=== PATIENT | female | born 1940 | race Caucasian/White ===

== ENCOUNTER 2024-04-10 06:44 | Emergency (ER) | payer OTHER, SELFPAY ==
[2024-04-10 06:48] VITALS: BP 198/72
[2024-04-10 06:50] VITALS: BP 198/72; BMI 24.6
[2024-04-10 06:54] VITALS: BP 186/59
[2024-04-10 07:00] VITALS: BP 178/55
[2024-04-10 07:07] LABS: % Basophils 0.7 % (0-2); % Eosinophils 4.1 % (0-6); % Immature Granulocytes 0.7 % (0-0.5); % Lymphocytes 23.9 % (20.5-51.1); % Monocytes 10.7 % (1.7-9.3); % Neutrophils 59.9 % (42.2-75.2); Absolute Basophils 0.1 10^3/uL (0-0.2); Absolute Eosinophils 0.3 10^3/uL (0-0.7); Absolute Immature Granulocytes 0.1 10^3/uL (0-0.05); Absolute Lymphocytes 1.8 10^3/uL (1.2-3.4); Absolute Monocytes 0.8 10^3/uL (0.1-0.6); Absolute Neutrophils 4.4 10^3/uL (1.4-6.5); Hematocrit 35.2 % (37.0-47.0); Hemoglobin 12.2 g/dL (12.0-16.0); Mean Corp Hgb Conc. 34.7 g/dL (33.0-37.0); Mean Corpuscular Hgb 30.3 pg (27.0-31.0); Mean Corpuscular Volume 87.3 fL (81.0-99.0); Mean Platelet Volume 8.5 fL (7.4-10.4); Nucleated Red Blood Cells % 0 %; Platelet Count 309 10^3/uL (130-400); Red Blood Cell Count 4.03 10^6/uL (4.20-5.40); Red Cell Dist. Width 13.4 % (11.5-14.5); White Blood Cell Count 7.4 10^3/uL (4.8-10.8)
[2024-04-10 07:11] LABS: ALT (SGPT) 21 U/L (0-35); AST (SGOT) 30 U/L (14-36); Albumin 4.2 g/dl (3.5-5.0); Alkaline Phosphatase 49 U/L (38-126); Blood Urea Nitrogen 13 mg/dl (7-17); Calcium 9.7 mg/dl (8.4-10.2); Carbon Dioxide 29 mmol/L (22-30); Chloride 99 mmol/L (98-107); Estimated Creatinine Clearance 37 ml/min; Glucose 127 mg/dl (70-99); Potassium 4.1 mmol/L (3.5-5.1); Sodium 137 mmol/L (135-145); Total Bilirubin 0.4 mg/dl (0.2-1.3); Total Protein 7.5 g/dl (6.3-8.2); eGFR > 60.00
--- NOTE | 2024-04-10 07:27 | ED.GENMED ---
History of Present Illness
General
Chief Complaint: Weakness
Source: patient
Exam Limitations: none
Time Seen by Provider: 04/10/24 07:19
History of Present Illness
History of Present Illness:
83-year-old female got up in the middle the night to use the bathroom. Upon returning to bed she felt sudden onset of bilateral leg weakness. Able to walk but legs felt weak. Some also tingling or cold sensation in both arms. Denies chest pain
shortness of breath headache visual issues speech issues or other complaints. This has been going on now for 2 to 3 hours
Past History
Past History
ED Past Medical History: CAD, HTN, Hypercholesterolemia, NIDDM, [place], Hypothyroidism, Other (Hemorrhoids) and Other (Central retinal vein occlusion of left eye with partial vision loss, macular edema both eyes, degenerative myopia of both eyes,
hypertensive retinopathy of both eyes, vitreous detachmen)
ED Past Surgical History: Cardiac (PTCA with stent to the right coronary artery February 2016), Cholecystectomy, Gynecological (hysterectomy salpingooophorectomy 11/2019), Orthopedic (Bilateral knee replacements) and Urological (abdominal culposuspension
)
Social History
Tobacco: Non-smoker
Alcohol: None
Drug: None
Personal:
Living: alone
Employment: Not employed
Family History
Family History: Other (Noncontributory)
Review of Systems
Review of Systems
All Other Systems: Not applicable
Constitutional: Denies fever
Respiratory: Reports no symptoms
Cardiac: Reports no symptoms
Phy Exam
Physical Exam
Physical Exam:
GENERAL: Alert and oriented in no apparent distress
EYE: Orbits normal.
NECK: Supple, no thyroid palpable
ENT: Pharynx without erythema
CARDIAC: Regular rate and rhythm without any obvious murmurs. Pacemaker left upper chest wall. Good distal pulses of the lower extremities and upper extremities. Extremities are warm. Good capillary refill.
LUNGS: Clear breath sounds,normal
ABDOMEN: Soft, without focal tenderness or distention
NEUROLOGICAL: Alert and oriented , speech normal. Cranial nerves II through XII intact. [id number] normal. No drift. Good upper extremity offset press operator. Dorsi and plantarflexion of the feet within normal limits. Some general weakness with straight
leg raising bilaterally but symmetrical and able to straight leg raise.
SKIN: Warm and dry, no rash or lesion, no discoloration, skin intact.
MUSCULOSKELETAL: No edema,no deformity.Good color
PSYCH: Normal and appropriate interaction.
Course
Orders/Labs/Results
Orders:
Orders
04/10/24 06:49
Cardiac Monitoring- Treatment ONCE
04/10/24 06:51
CMP [Comprehensive Metabolic Panel] Urgent
Complete Blood Count/With Diff Urgent
04/10/24 07:25
CT Head W/o Iv Contrast Urgent
Comment:
Reason For Exam: Sudden bilateral weakness
04/10/24 09:19
EKG [Electrocardiogram (*1)] Urgent
Reason for Study: Fatigue / Weakness
EKG- Treatment ONCE
Abnormal Lab Results
04/10/24
06:51
RBC 4.03 L 10^6/uL
(4.20-5.40)
Hct 35.2 L %
(37.0-47.0)
Abs Immat Gran (auto) 0.1 H 10^3/uL
(0-0.05)
Absolute Monos (auto) 0.8 H 10^3/uL
(0.1-0.6)
Immature Gran % 0.7 H %
(0-0.5)
Monocytes % 10.7 H %
(1.7-9.3)
Glucose 127 H mg/dl
(70-99)
04/10/24 06:51
04/10/24 06:51
Vital Signs
Initial and Last Documented VS:
Initial Vital Signs
BP
198/72
04/10/24 06:48
Last Documented Vital Signs
Temp Pulse Resp BP Pulse Ox
98.1 F 64 16 189/61 97
04/10/24 06:50 04/10/24 09:30 04/10/24 09:30 04/10/24 08:00 04/10/24 09:30
*Radiology
Radiology exam reviewed: radiology read reviewed (neg ct)
*Pulse Oximetry
Patient hypoxic: no
*EKG
Interpreted by ED Provider?: Yes
Interpretation: abnormal
Comparison EKG: no changes
Heart Rate: 61
Rate: normal
Rhythm: other (Atrial paced rhythm)
Vista: left axis deviation
Interval: normal interval
QRS Pattern: normal QRS
Ischemia: no ischemia
*First Assist Interpretation
Rate: normal
Interpretation: normal
Heart Rate: 62
Rhythm: other (Atrial paced)
*Critical Care Note
Total Time (30-74mins, 75-104mins- exclusive of procedures): Not Applicable
Update Note
Update Note:
Patient ambulated well and feels well. Nothing acute on the pacer evaluation. Medically stable. No serious etiology found for transient bilateral lower extremity weakness. Nothing to suspect vascular issue discharged to follow-up
ED Attending Note
-
Portions of this chart may have been created with voice recognition software.� Occasional wrong word or��sound alike� substitutions may have occurred due to the inherent limitations of voice recognition software.
Discharge Plan
Departure
Patient Disposition: Home (Routine Discharge)
Date of Disposition: 04/10/24
Time of Disposition: 10:33
Patient with high blood pressure during this ER visit?: Yes
Discharge Problem:
Transient bilateral lower extremity weak
Instructions: Generalized Weakness (DC), BLOOD PRESSURE
Prescriptions:
No Action
acetaminophen [Tylenol Extra Strength] 500 MG tablet
500 mg PO Q6HPRN PRN (Reason: mild pain)
calcium carbonate [Antacid (calcium carbonate)] 1 TABLET tablet,chewable
1 tab PO Q6HPRN PRN (Reason: gi upset)
pravastatin 10 mg Tablet
10 mg PO MOWEFR
amlodipine 10 mg tablet
10 mg PO DAILY
Visbiome 112.5 billion cell Capsule
1 cap PO DAILY
metoprolol succinate 25 mg tablet extended release 24 hr
25 mg PO BID
polyethylene glycol 3350 [Miralax] 17 gram Powder In Packet
17 g PO DAILYPRN PRN (Reason: constipation)
levothyroxine 75 mcg Tablet
75 mcg PO DAILY AT 0700 30 Days Qty: 30 0RF
metformin 500 MG tablet
500 mg PO BID Qty: 0 0RF
Rx Instructions:
resume friday
Eliquis 2.5 mg Tablet
2.5 mg PO BID Qty: 60 0RF
Rx Instructions:
resume eliquis today evening
Referrals:
Stephanie Conte MD [Family Provider] - Follow up in 2-3 days
Activity Restrictions/Additional Instructions:
Follow-up closely with your primary physician. Return with any recurrent episodes of weakness or any other concerning symptoms
Interventions
Interventions:
*Risk Screen - Suicide Last Done: 04/10/24 06:50
*General Assessment Last Done: 04/10/24 06:50
*Neglect/Abuse Screening Last Done: 04/10/24 06:50
ED- Fall Risk Assessment Last Done: 04/10/24 06:53
*ED COVID-19 Vaccine History Last Done: 04/10/24 06:50
ED- Cardiac Assessment Last Done: 04/10/24 07:10
ED- Neurological Assessment Last Done: 04/10/24 07:10
ED- Pulmonary Assessment Last Done: 04/10/24 07:10
Discharge Date and Time
Print Language: KYRGYZ
[2024-04-10 08:00] VITALS: BP 189/61
== END 2024-04-10 10:57 | disposition home or self-care (01) ==
LOC: EMR 06:44
PROVIDERS: EMERGENCY PHYSICIAN Emergency Medicine; FAMILY PHYSICIAN Family Medicine
DX: M62.81 Muscle weakness (generalized) (principal); R20.2 Paresthesia of skin; I10 Essential (primary) hypertension; I25.10 Atherosclerotic heart disease of native coronary artery without angina pectoris; E78.00 Pure hypercholesterolemia, unspecified; E11.311 Type 2 diabetes mellitus with unspecified diabetic retinopathy with macular edema; E03.9 Hypothyroidism, unspecified; I25.2 Old myocardial infarction; Z95.5 Presence of coronary angioplasty implant and graft; Z96.653 Presence of artificial knee joint, bilateral; Z87.19 Personal history of other diseases of the digestive system; Z90.49 Acquired absence of other specified parts of digestive tract; Z79.01 Long term (current) use of anticoagulants; Z79.84 Long term (current) use of oral hypoglycemic drugs; Z88.1 Allergy status to other antibiotic agents; Z88.5 Allergy status to narcotic agent; Z88.2 Allergy status to sulfonamides; Z88.8 Allergy status to other drugs, medicaments and biological substances
CPT/HCPCS: 99284; 70450; 80053; 85025; 93005

== ENCOUNTER 2024-07-13 07:44 | Emergency (ER) | payer OTHER, SELFPAY ==
[2024-07-13] VITALS (9 sets, daily range): BP systolic 103–180; BP diastolic 61–111; BMI 24.2
--- NOTE | 2024-07-13 08:01 | ED.GENMED ---
History of Present Illness
General
Chief Complaint: Chest Pain
Source: patient
Exam Limitations: none
Time Seen by Provider: 07/13/24 07:46
History of Present Illness
History of Present Illness:
83-year-old female with history coronary artery disease, atrial fibrillation, [id number]-yeqrsrega diabetes has a pacemaker presents with the onset of chest pain. This woke her up at 530 this morning. She described with pressure to the left side
of her chest that did not radiate without associated nausea or diaphoresis or vomiting. The pain was not pleuritic. She went downstairs and took a nitroglycerin and the pain seems to have resolved. The pain lasted around 20 to 30 minutes. En
route she was given the equivalent of 4 aspirin. Currently on my exam she denies any pain. She is on Eliquis. Last dose of this was last evening. No abdominal pain. No other complaints at this time
Past History
Past History
ED Past Medical History: CAD, HTN, Hypercholesterolemia, NIDDM, [place], Hypothyroidism, Other (Hemorrhoids) and Other (Central retinal vein occlusion of left eye with partial vision loss, macular edema both eyes, degenerative myopia of both eyes,
hypertensive retinopathy of both eyes, vitreous detachmen)
ED Past Surgical History: Cardiac (PTCA with stent to the right coronary artery February 2016), Cholecystectomy, Gynecological (hysterectomy salpingooophorectomy 11/2019), Orthopedic (Bilateral knee replacements) and Urological (abdominal culposuspension
)
Social History
Tobacco: Non-smoker
Alcohol: None
Drug: None
Personal:
Living: alone
Employment: Not employed
Family History
Family History: Other (Noncontributory)
Phy Exam
Physical Exam
Physical Exam:
General: Well-appearing female no acute respiratory distress
HEENT: Normocephalic atraumatic
Heart: Regular rate and rhythm no murmurs
Lungs: Clear no wheeze or rales
Abdomen soft nontender nondistended
Extremities: No cyanosis or edema
Scores
Heart Score for Chest Pain Patients
STEMI patient?: No
History: Slightly or Non-Suspicious
ECG: Normal
Age: >/= 65 years
Risk Factors: >/= 3 Risk Factors or History of CAD
Troponin: </= Normal Limit
Heart Score for Chest Pain Patients: 4
Heart Score Risk: 20.3% MACE over next 6 weeks
Course
Orders/Labs/Results
Orders:
Orders
07/13/24 07:51
Electrocardiogram (*1) Urgent
Reason for Study: Chest Pain
EKG- Treatment ONCE
07/13/24 07:59
CR Chest Portable - 1 View Urgent
Comment:
Reason For Exam: chest pain
Reason Study Needs to be Portable: Unable to Transport
07/13/24 08:04
Complete Blood Count/With Diff Urgent
Comprehensive Metabolic Panel Urgent
Troponin I Urgent
07/13/24 10:00
Electrocardiogram (*1) Urgent
Reason for Study: Chest Pain
EKG- Treatment ONCE
07/13/24 11:56
Troponin I Urgent
Abnormal Lab Results
07/13/24
08:04
RBC 4.04 L 10^6/uL
(4.20-5.40)
Absolute Monos (auto) 0.8 H 10^3/uL
(0.1-0.6)
Monocytes % 12.9 H %
(1.7-9.3)
Glucose 136 H mg/dl
(70-99)
Alkaline Phosphatase 36 L U/L
(38-126)
07/13/24 08:04
07/13/24 08:04
Vital Signs
Initial and Last Documented VS:
Initial Vital Signs
Temp Pulse Resp BP Pulse Ox
98.0 F 67 20 180/70 100
07/13/24 07:48 07/13/24 07:48 07/13/24 07:48 07/13/24 07:48 07/13/24 07:48
Last Documented Vital Signs
Temp Pulse Resp BP Pulse Ox
98.0 F 75 13 103/88 98
07/13/24 07:48 07/13/24 11:53 07/13/24 11:53 07/13/24 11:53 07/13/24 11:53
MDM/Problems Addressed
Differential Diagnosis Includes:
Chest pain. Differential could include ACS. Unlikely to be PE secondary to anticoagulated state. Symptoms are resolved. Vital signs are stable there was no radiation of the pain. Dissection unlikely.
EKG through triage shows atrial paced rhythm with a rate of 61 no ischemic changes. When compared to prior there is no change noted. Chest x-ray pending will check labs including troponin. Consider repeat troponin if initial and is negative.
Pacemaker interrogated
*Critical Care Note
Total Time (30-74mins, 75-104mins- exclusive of procedures): Not Applicable
Update Note
Update Note:
Initial troponin undetectable. Repeat troponin undetectable. Patient remained stable and nontoxic. Upon reassessment multiple times he has no current pain. Repeat EKG is nonischemic. X-ray is clear. Given history of coronary artery disease age
and other risk factors, did contact cardiology regarding her chest discomfort. They feel comfortable with outpatient follow-up given nonischemic EKG and negative troponins. Patient comfortable with this as well. Chest pain hotline used. Return
precautions were given. Stable for discharge.
ED Attending Note
-
Portions of this chart may have been created with voice recognition software.� Occasional wrong word or��sound alike� substitutions may have occurred due to the inherent limitations of voice recognition software.
Discharge Plan
Departure
Patient Disposition: Home (Routine Discharge)
Date of Disposition: 07/13/24
Time of Disposition: 13:31
Patient with high blood pressure during this ER visit?: No
Discharge Problem:
Chest pain
Instructions: Chest Pain DCA Follow Up
Prescriptions:
No Action
acetaminophen [Tylenol Extra Strength] 500 MG tablet
500 mg PO Q6HPRN PRN (Reason: mild pain)
calcium carbonate [Antacid (calcium carbonate)] 1 TABLET tablet,chewable
1 tab PO Q6HPRN PRN (Reason: gi upset)
pravastatin 10 mg Tablet
10 mg PO MOWEFR
amlodipine 10 mg tablet
10 mg PO DAILY
Visbiome 112.5 billion cell Capsule
1 cap PO DAILY
metoprolol succinate 25 mg tablet extended release 24 hr
25 mg PO BID
polyethylene glycol 3350 [Miralax] 17 gram Powder In Packet
17 g PO DAILYPRN PRN (Reason: constipation)
levothyroxine 75 mcg Tablet
75 mcg PO DAILY AT 0700 30 Days Qty: 30 0RF
metformin 500 MG tablet
500 mg PO BID Qty: 0 0RF
Rx Instructions:
resume friday
Eliquis 2.5 mg Tablet
2.5 mg PO BID Qty: 60 0RF
Rx Instructions:
resume eliquis today evening
Referrals:
Stephanie Conte MD [Family Provider] -
Activity Restrictions/Additional Instructions:
Please continue current medications. Return here for worsening symptoms otherwise follow-up with cardiology.
Interventions
Interventions:
*Risk Screen - Suicide Last Done: 07/13/24 08:00
*General Assessment Last Done: 07/13/24 07:59
*Neglect/Abuse Screening Last Done: 07/13/24 07:48
*ED COVID-19 Vaccine History Last Done: 07/13/24 07:59
ED- Cardiac Assessment Last Done: 07/13/24 08:00
Discharge Date and Time
Print Language: AMERICAN
[2024-07-13 08:11] LABS: % Basophils 0.7 % (0-2); % Eosinophils 2.4 % (0-6); % Immature Granulocytes 0.5 % (0-0.5); % Lymphocytes 22.9 % (20.5-51.1); % Monocytes 12.9 % (1.7-9.3); % Neutrophils 60.6 % (42.2-75.2); Absolute Eosinophils 0.1 10^3/uL (0-0.7); Absolute Lymphocytes 1.4 10^3/uL (1.2-3.4); Absolute Monocytes 0.8 10^3/uL (0.1-0.6); Absolute Neutrophils 3.6 10^3/uL (1.4-6.5); Hematocrit 37.5 % (37.0-47.0); Hemoglobin 12.4 g/dL (12.0-16.0); Mean Corp Hgb Conc. 33.1 g/dL (33.0-37.0); Mean Corpuscular Hgb 30.7 pg (27.0-31.0); Mean Corpuscular Volume 92.8 fL (81.0-99.0); Mean Platelet Volume 8.5 fL (7.4-10.4); Nucleated Red Blood Cells % 0 %; Platelet Count 290 10^3/uL (130-400); Red Blood Cell Count 4.04 10^6/uL (4.20-5.40); Red Cell Dist. Width 13.3 % (11.5-14.5)
[2024-07-13 08:28] LABS: ALT (SGPT) 20 U/L (0-35); AST (SGOT) 28 U/L (14-36); Alkaline Phosphatase 36 U/L (38-126); Blood Urea Nitrogen 17 mg/dl (7-17); Calcium 9.3 mg/dl (8.4-10.2); Carbon Dioxide 28 mmol/L (22-30); Chloride 98 mmol/L (98-107); Estimated Creatinine Clearance 38 ml/min; Glucose 136 mg/dl (70-99); Potassium 4.6 mmol/L (3.5-5.1); Sodium 136 mmol/L (135-145); Total Bilirubin 0.5 mg/dl (0.2-1.3); Total Protein 7.3 g/dl (6.3-8.2); eGFR > 60.00
[2024-07-13 08:38] LABS: Troponin I < 0.012 ng/ml
[2024-07-13 12:57] LABS: Troponin I < 0.012 ng/ml
--- NOTE | 2024-07-13 13:59 | EDRN ---
Reviewed discharge instructions with patient. Verbalized understanding. Taken to lobby in wheelchair to wait for her sister to pick her up.
== END 2024-07-13 13:55 | disposition home or self-care (01) ==
LOC: EMR 07:44
PROVIDERS: Physician Assistant; EMERGENCY PHYSICIAN Emergency Medicine; FAMILY PHYSICIAN Family Medicine
DX: R07.9 Chest pain, unspecified (principal); I25.10 Atherosclerotic heart disease of native coronary artery without angina pectoris; I10 Essential (primary) hypertension; E78.00 Pure hypercholesterolemia, unspecified; E03.9 Hypothyroidism, unspecified; E11.9 Type 2 diabetes mellitus without complications; I48.91 Unspecified atrial fibrillation; Z95.0 Presence of cardiac pacemaker; Z79.01 Long term (current) use of anticoagulants; Z01.810 Encounter for preprocedural cardiovascular examination; Z90.49 Acquired absence of other specified parts of digestive tract; Z90.710 Acquired absence of both cervix and uterus; Z95.5 Presence of coronary angioplasty implant and graft
CPT/HCPCS: 99285; 71045; 80053; 84484; 85025; 93005

== ENCOUNTER → 2024-09-02 10:47 | Outpatient (REF) | payer OTHER, SELFPAY | LOC: RCS 10:47 | PROVIDERS: ATTENDING PHYSICIAN Physician Assistant; FAMILY PHYSICIAN Family Medicine | DX: I25.10 Atherosclerotic heart disease of native coronary artery without angina pectoris (principal); I34.0 Nonrheumatic mitral (valve) insufficiency; R06.09 Other forms of dyspnea | CPT/HCPCS: 93306 ==

== ENCOUNTER 2024-11-10 08:53 | Emergency (ER) | payer OTHER, SELFPAY ==
[2024-11-10] VITALS (12 sets, daily range): BP systolic 158–196; BP diastolic 66–98; PULSE 61–84; BMI 23.8
--- NOTE | 2024-11-10 09:02 | ED.GENMED ---
History of Present Illness
<RAVIN Alcala - Last Filed: 11/10/24 16:50>
General
Chief Complaint: Dizziness
Source: patient
Exam Limitations: none
Time Seen by Provider: 11/10/24 08:57
Nursing documentation reviewed up to this point in time: agreed with
History of Present Illness
History of Present Illness:
Patient is an 84-year-old female who presents via EMS for dizziness. Patient reports she woke up opened her eyes and felt very' lightheaded.' She said 'my head felt funny,' but ' room was not spinning. She tried to walk with her cane but felt
lightheaded. She did take a chair rider downstairs and had some mild pressure in her chest when she got down to the next floor.
She felt more lightheaded like she was afraid to pass out. She does have a history of A-fib CAD hypertension hyperlipidemia and RCA stent. She normally takes Eliquis in the morning but did not take it yet today.
Past History
<RAVIN Alcala - Last Filed: 11/10/24 16:50>
Past History
ED Past Medical History: CAD, HTN, Hypercholesterolemia, NIDDM, [place], Hypothyroidism, Other (Hemorrhoids) and Other (Central retinal vein occlusion of left eye with partial vision loss, macular edema both eyes, degenerative myopia of both eyes,
hypertensive retinopathy of both eyes, vitreous detachmen)
ED Past Surgical History: Cardiac (PTCA with stent to the right coronary artery February 2016), Cholecystectomy, Gynecological (hysterectomy salpingooophorectomy 11/2019), Orthopedic (Bilateral knee replacements) and Urological (abdominal culposuspension
)
Social History
Tobacco: Non-smoker
Alcohol: None
Drug: None
Personal:
Living: alone
Employment: Not employed
Family History
Family History: Other (Noncontributory)
Review of Systems
<RAVIN Alcala - Last Filed: 11/10/24 16:50>
Review of Systems
Allergies reviewed?: Yes
All Other Systems: ROS reviewed and negative except as documented in HPI and ROS
Constitutional: Reports no symptoms; Denies fever, fatigue or chills
Respiratory: Reports no symptoms
Cardiac: Reports no symptoms
ABD/GI: Reports no symptoms
: Reports no symptoms
Musculoskeletal: Reports no symptoms
Skin: Reports no symptoms
Neurological: Reports dizzy
Phy Exam
<RAVIN Alcala - Last Filed: 11/10/24 16:50>
General Physical Exam
General Presentation: no apparent distress
General age: appears stated age
General Skin: warm and dry
General Habitus: elderly
General Mental: alert
General Hydration: appears well hydrated
ENT Exam
ENT Exam: EOMI
Eye Exam
Eye Exam: PERRL, EOMI and other (no nystagmus )
Eye Exam General: PERRL: bilateral and EOM intact: bilateral
Pupil Exam: Bilateral: round and reactive
Cardiovascular Exam
Cardiovascular Exam: regular rate/rhythm, no murmur and normal peripheral pulses
Pulmonary Exam
Pulmonary Exam: lungs clear and no respiratory distress
Neurological Exam
Neurological Exam: alert
Musculoskeletal Exam
Musculoskeletal Exam: full ROM
Skin Exam
Skin Exam: normal color and warm/dry
Psychiatric Exam
Psychiatric Exam: normal mood/affect
Course
<RAVIN Alcala - Last Filed: 11/10/24 16:50>
Orders/Labs/Results
Orders:
Orders
11/10/24 08:55
Electrocardiogram (*1) Urgent
Reason for Study: Vertigo / Dizzy
Cardiac Monitoring- Treatment ONCE
EKG- Treatment ONCE
11/10/24 09:02
Complete Blood Count/With Diff Urgent
11/10/24 09:07
CT Head W/o Iv Contrast Urgent
Comment:
Reason For Exam: dizziness
11/10/24 09:28
Comprehensive Metabolic Panel Urgent
Troponin I Urgent
11/10/24 09:42
Chest [CR Chest - 2 Views ] Urgent
Comment:
Reason For Exam: cp
11/10/24 09:59
PT Consult [Pt Eval And Treat] Urgent
Treatment: dizziness, feels better
Activity Level: Out of Bed-Early Mobility
11/10/24 10:37
Orthostatic VS- Treatment ONCE
11/10/24 10:52
NEUROLOGY CONSULT Urgent
Consulting Provider: Crow Sanford
Was physician already notified: Yes
Abnormal Lab Results
11/10/24 11/10/24
09:02 09:28
RBC 4.09 L 10^6/uL
(4.20-5.40)
Hct 35.9 L %
(37.0-47.0)
Absolute Monos (auto) 0.8 H 10^3/uL
(0.1-0.6)
Monocytes % 11.0 H %
(1.7-9.3)
Sodium 133 L mmol/L
(135-145)
Glucose 126 H mg/dl
(70-99)
11/10/24 09:02
11/10/24 09:28
Vital Signs
Initial and Last Documented VS:
Initial Vital Signs
Temp Pulse Resp BP Pulse Ox
97.9 F 60 14 179/89 100
11/10/24 08:56 11/10/24 08:56 11/10/24 08:56 11/10/24 08:56 11/10/24 08:56
Last Documented Vital Signs
Temp Pulse Resp BP Pulse Ox
97.9 F 89 18 158/66 98
11/10/24 08:56 11/10/24 13:00 11/10/24 13:00 11/10/24 12:00 11/10/24 13:00
Anime Designer consulted with Physician
Anime Designer consulted with physician?: Yes
Name of Physician Consulted: Susie
<Desiree Richards MD - Last Filed: 11/10/24 10:07>
Orders/Labs/Results
Orders:
Orders
11/10/24 08:55
Electrocardiogram (*1) Urgent
Reason for Study: Vertigo / Dizzy
Cardiac Monitoring- Treatment ONCE
EKG- Treatment ONCE
11/10/24 09:02
Complete Blood Count/With Diff Urgent
11/10/24 09:07
CT Head W/o Iv Contrast Urgent
Comment:
Reason For Exam: dizziness
11/10/24 09:28
Comprehensive Metabolic Panel Urgent
Troponin I Urgent
11/10/24 09:42
Chest [CR Chest - 2 Views ] Urgent
Comment:
Reason For Exam: cp
11/10/24 09:59
PT Consult [Pt Eval And Treat] Urgent
Treatment: dizziness, feels better
Activity Level: Out of Bed-Early Mobility
11/10/24 10:37
Orthostatic VS- Treatment ONCE
11/10/24 10:52
NEUROLOGY CONSULT Urgent
Consulting Provider: Crow Sanford
Was physician already notified: Yes
Abnormal Lab Results
11/10/24 11/10/24
09:02 09:28
RBC 4.09 L 10^6/uL
(4.20-5.40)
Hct 35.9 L %
(37.0-47.0)
Absolute Monos (auto) 0.8 H 10^3/uL
(0.1-0.6)
Monocytes % 11.0 H %
(1.7-9.3)
Sodium 133 L mmol/L
(135-145)
Glucose 126 H mg/dl
(70-99)
11/10/24 09:02
11/10/24 09:28
Vital Signs
Initial and Last Documented VS:
Initial Vital Signs
Temp Pulse Resp BP Pulse Ox
97.9 F 60 14 179/89 100
11/10/24 08:56 11/10/24 08:56 11/10/24 08:56 11/10/24 08:56 11/10/24 08:56
Last Documented Vital Signs
Temp Pulse Resp BP Pulse Ox
97.9 F 89 18 158/66 98
11/10/24 08:56 11/10/24 13:00 11/10/24 13:00 11/10/24 12:00 11/10/24 13:00
<RAVIN Alcala - Last Filed: 11/10/24 16:50>
MDM/Problems Addressed
Differential Diagnosis Includes:
Not limited to lightheadedness, anemia, dehydration, vertigo, dizziness less likely stroke
MDM/Problems Addressed:
Patient is an 84-year-old female who presented with dizziness upon opening her eyes this morning. She describes this as feeling very dizzy and felt' like my head felt funny.' She denies actual room spinning sensation however with pt's description
of type of dizziness it is possible that this is vertigo.
Patient presented awake alert no acute distress and on reevaluation now at 10 AM patient is asymptomatic dizziness has resolved. Case reviewed with ED physician will check CAT scan as well as PT consult labs. She did complain of mild chest
pressure after taking a chair ride her down the steps. Will check troponin and interrogate patient's pacemaker.
Pt was evaluated by PT and well as neuro.
Patient has remained asymptomatic here in the ER and is well-appearing .ambulatory with a steady gait. No neurological deficits symptoms are not consistent with vertigo as discussed with PT who evaluated patient. Patient's blood pressure was very
elevated when she came to the ER and neurology did see patient feels that this may likely be a component. Blood pressure has decreased on its own.
Patient is well-appearing and asymptomatic currently.
CT head is negative chest x-ray is negative and labs are unremarkable.
Pacemaker interrogated shows no episodes of V. tach V-fib or fast rates.
Patient has been ambulatory here in the ER stable for discharge home.
Pt was eval by ED physician
<RAVIN Alcala - Last Filed: 11/10/24 16:50>
*Radiology
Radiology exam reviewed: radiology read reviewed
*Pulse Oximetry
Patient hypoxic: no
*EKG
Interpreted by ED Provider?: Yes
Heart Rate: 80
Rate: normal
Rhythm: other (paced )
*Critical Care Note
Total Time (30-74mins, 75-104mins- exclusive of procedures): Not Applicable
Data Reviewed
Review of Other/Old Records Reveals: Other (Echo 09/18 reviewed shows normal left regular size left regular ejection fraction 66% mild aortic regurg mild tricuspid regurg no significant change from 2022 echo )
<RAVIN Alcala - Last Filed: 11/10/24 16:50>
Patient Management
Discussion with other providers: Hall Director (neuro DR Sanford )
ED Attending Note
<RAVIN Alcala - Last Filed: 11/10/24 16:50>
-
Portions of this chart may have been created with voice recognition software.� Occasional wrong word or��sound alike� substitutions may have occurred due to the inherent limitations of voice recognition software.
<Desiree Richards MD - Last Filed: 11/10/24 10:07>
ED Attending Note
Patient seen and examined by attending physician: Yes
I performed the substantive portion of visit, reviewed & personally made and approve the management plan that is documented in note by myself or SHENA.: Yes
ED Attending Note:
The patient has a normal neurological exam. Visual chang are intact. Extraocular muscles are intact. 5 out of 5 strength in all extremities. Speech sounds normal.
Heart sounds regular lungs are clear. Patient reports that symptoms are completely gone at this time. Therefore, is it is doubtful it is a stroke. She has no visual changes.
Discharge Plan
Departure
Patient Disposition: Home (Routine Discharge)
Date of Disposition: 11/10/24
Time of Disposition: 12:54
Patient with high blood pressure during this ER visit?: Yes
Condition: Fair
Covid-19: Not Applicable
Discharge Problem:
Dizziness
Instructions: Dizziness, BLOOD PRESSURE
Prescriptions:
No Action
acetaminophen [Tylenol Extra Strength] 500 MG tablet
500 mg PO Q6HPRN PRN (Reason: mild pain)
calcium carbonate [Antacid (calcium carbonate)] 1 TABLET tablet,chewable
1 tab PO Q6HPRN PRN (Reason: gi upset)
pravastatin 10 mg Tablet
10 mg PO MOWEFR
amlodipine 10 mg tablet
10 mg PO DAILY
Visbiome 112.5 billion cell Capsule
1 cap PO DAILY
metoprolol succinate 25 mg tablet extended release 24 hr
25 mg PO BID
polyethylene glycol 3350 [Miralax] 17 gram Powder In Packet
17 g PO DAILYPRN PRN (Reason: constipation)
levothyroxine 75 mcg Tablet
75 mcg PO DAILY AT 0700 30 Days Qty: 30 0RF
metformin 500 MG tablet
500 mg PO BID Qty: 0 0RF
Rx Instructions:
resume friday
Eliquis 2.5 mg Tablet
2.5 mg PO BID Qty: 60 0RF
Rx Instructions:
resume eliquis today evening
Referrals:
Stephanie Conte MD [Family Provider] -
Activity Restrictions/Additional Instructions:
As discussed please take all of your medication when you go home. Follow-up with your family doctor in the next several days and return if any worsening of symptoms.
Interventions
Interventions:
*Risk Screen - Suicide Last Done: 11/10/24 08:56
*General Assessment Last Done: 11/10/24 08:56
*Neglect/Abuse Screening Last Done: 11/10/24 08:56
*ED- Fall Risk Assessment Last Done: 11/10/24 08:56
*ED COVID-19 Vaccine History Last Done: 11/10/24 08:56
*Nursing Disposition Last Done: 11/10/24 13:34
ED- Neurological Assessment Last Done: 11/10/24 09:45
ED- Cardiac Assessment Last Done: 11/10/24 09:45
Discharge Date and Time
Discharge Date/Time: 11/10/24 13:41
Print Language: CZECH
[2024-11-10 09:23] LABS: % Basophils 0.8 % (0-2); % Eosinophils 1.6 % (0-6); % Immature Granulocytes 0.5 % (0-0.5); % Lymphocytes 21.4 % (20.5-51.1); % Neutrophils 64.7 % (42.2-75.2); Absolute Basophils 0.1 10^3/uL (0-0.2); Absolute Eosinophils 0.1 10^3/uL (0-0.7); Absolute Lymphocytes 1.6 10^3/uL (1.2-3.4); Absolute Monocytes 0.8 10^3/uL (0.1-0.6); Absolute Neutrophils 4.8 10^3/uL (1.4-6.5); Hematocrit 35.9 % (37.0-47.0); Hemoglobin 12.3 g/dL (12.0-16.0); Mean Corp Hgb Conc. 34.3 g/dL (33.0-37.0); Mean Corpuscular Hgb 30.1 pg (27.0-31.0); Mean Corpuscular Volume 87.8 fL (81.0-99.0); Mean Platelet Volume 8.6 fL (7.4-10.4); Nucleated Red Blood Cells % 0 %; Platelet Count 285 10^3/uL (130-400); Red Blood Cell Count 4.09 10^6/uL (4.20-5.40); Red Cell Dist. Width 13.6 % (11.5-14.5); White Blood Cell Count 7.5 10^3/uL (4.8-10.8)
[2024-11-10 09:55] LABS: ALT (SGPT) 19 U/L (0-35); AST (SGOT) 28 U/L (14-36); Albumin 4.3 g/dl (3.5-5.0); Alkaline Phosphatase 55 U/L (38-126); Blood Urea Nitrogen 17 mg/dl (7-17); Calcium 9.7 mg/dl (8.4-10.2); Carbon Dioxide 25 mmol/L (22-30); Chloride 98 mmol/L (98-107); Estimated Creatinine Clearance 41 ml/min; Glucose 126 mg/dl (70-99); Potassium 4.1 mmol/L (3.5-5.1); Sodium 133 mmol/L (135-145); Total Protein 7.5 g/dl (6.3-8.2); eGFR > 60.00
[2024-11-10 09:59] LABS: Troponin I < 0.012 ng/ml
--- NOTE | 2024-11-10 10:00 | EDRN ---
Patient ambulated to the bathroom and back in bed, reports feeling slightly dizzy during this, not room spinning but as if she was going to fall.
[2024-11-10 10:28] LABS: Total Bilirubin 0.6 mg/dl (0.2-1.3)
--- NOTE | 2024-11-10 10:50 | EDRN ---
Physical therapy at bedside with patient
--- NOTE | 2024-11-10 10:58 | CON.NEURO4 ---
Addendum entered and electronically signed by Crow Sanford MD 11/10/24 16:12:
Studies reviewed.
I have personally examined the patient. I reviewed and agree with the ECONOMIC SPECIALIST's Note.
My addenda:
Awake, alert, interactive. No acute distress.
Speech intact.
Follows 2-step requests w/o difficulty. No tremor.
Extra-ocular movements grossly intact.
Facial movements full and symmetric. Hearing intact to normal conversational volume.
Normal UE movements bilaterally.
Neck: full ROM.
Chest: no dyspnea
Heart: no JVD
Ext: (-) Clubbing, (-) Cyanosis, (-) Edema
IMPRESSIONS/RECOMMENDATIONS:
Abrupt onset of dizziness
Most likely secondary to orthostatic hypotension. There is no clear evidence of Carol Steven abnormality nor is there migrainous association
Check orthostatic blood pressures
Consider abdominal binder based on test results
No clear indication patient would benefit from additional neuroimaging
D/W patient
Will continue to follow pending results.
Original Note:
Documented by User: Ange Brasher NP 11/10/24 13:43
Consultation - Neurology 4
-
CONSULTING PHYSICIAN: Crow Sanford MD
REFERRING PHYSICIAN: ER/RAVIN Stevens
DICTATED BY: RAVIN Jeter
DATE/TIME OF REQUEST: 11/10/24
DATE/TIME OF CONSULTATION: 11/10/24
Reason for Consultation: Dizziness
History of Present Illness:
This is an 84-year-old right-handed female who has presented to the hospital with report of dizziness. Patient reports going to bed at 2100 last night (11/09/24) and feeling in her usual state. She woke up this morning at 0630, sat up in bed, and
became severely dizzy. She was able to walk downstairs but still felt very dizzy still and also noticed some chest pressure, prompting her to call 911. On arrival in the ER she developed a headache. Blood pressure was 196/98. She notes feeling a
little 'woozy' at rest currently. She felt okay walking to the bathroom, but upon standing up from the toilet she developed the dizzy sensation again. She denies falling. She denies missing any doses of Eliquis. She denies any history of vertigo or
events similar to this in the past.
Past Medical History: Afib (Eliquis), HTN, HLD, [place], sick sinus syndrome, NIDDM, CKD, hypothyroidism, left eye CRAO, glaucoma, macular edema both eyes, hypertensive retinopathy bilateral, vitreous detachment
Surgical History: Pacemaker, cardiac stent, cholecystectomy, SKYLER BSO, b/l knee replacement
Family History: Reviewed and noncontributory.
Social History: Denies tobacco, alcohol, and illicit drug use.
Allergies: See below.
Home Medications: See below.
Review of Symptoms:
Patient denies any fever, chest pain, shortness of breath, GI or symptoms.
�Per the HPI.�All systems are reviewed negative except above.
Physical Exam:
The patient is afebrile, abdomen is nondistended, breathing is unlabored, skin is warm and dry, no edema.
NIH Stroke Scale:
I performed the NIH stroke scale on the patient on 11/10/24 at 1100. The patient scored 0 points on the NIH stroke scale assessment, which were assigned as follows: See below.
Neurologic Examination:
The patient is awake, alert and oriented x 3. She is able to follow commands and answer questions appropriately. There is no aphasia or dysarthria. On cranial nerve assessment, pupils are 3 mm bilateral, round and reactive to light and
accommodation. Visual ashton are full. Extraocular movements are intact. Facial sensations are intact and bilaterally symmetrical, there is no facial asymmetry. Hearing is intact bilaterally to normal conversation volume. Tongue palate and uvula are
midline. Sternocleidomastoid strengths are full bilaterally. Motor strengths are 5/5 bilateral upper and lower extremities on medical research [place] scale. There is no drift or involuntary movement noted. There was no extinction noted on double
simultaneous stimulation. Coordination is intact by finger to nose bilaterally.
Lab Results: See below.
Neuro Imaging:
1. CT Head 11/10/24: No acute intracranial abnormalities. Findings again seen compatible with diffuse cortical atrophy with nonspecific white matter changes as described above.
Differentials for the patient's presentation include:
1. Hypertensive urgency likely producing patient's dizziness.
2. Low concern for stroke.
Patient has the following risk factors for their symptoms: HTN
Recommendations:
-Continue Eliquis.
-Goal normotension.
-Physical therapy evaluation.
Discussed patient care with: Dr. Sanford, the patient
Vital Signs and Labs
-
Vital Signs and Labs:
Vital Signs
Temp Pulse Resp BP Pulse Ox
97.9 F 60 12 158/66 96
11/10/24 08:56 11/10/24 12:00 11/10/24 12:00 11/10/24 12:00 11/10/24 12:00
Lab Results
11/10/24 09:02
11/10/24 09:28
Sodium 133 mmol/L (135-145) L 11/10/24 09:28
Potassium 4.1 mmol/L (3.5-5.1) 11/10/24 09:28
BUN 17 mg/dl (7-17) 11/10/24 09:28
Glucose 126 mg/dl (70-99) H 11/10/24 09:28
Calcium 9.7 mg/dl (8.4-10.2) 11/10/24 09:28
Medications
-
Home Medications
�Medication �Instructions �Recorded
acetaminophen 500 mg tablet 500 mg PO Q6HPRN PRN mild pain 10/28/19
(Tylenol Extra Strength)
calcium carbonate (Antacid 1 tab PO Q6HPRN PRN gi upset 10/28/19
(calcium carbonate))
pravastatin 10 mg tablet 10 mg PO MOWEFR High cholesterol 09/13/22
Lactobac no.2-Bifidobac no.1-S. 1 cap PO DAILY Supplement 01/01/23
thermo 112.5 billion cell capsule
(Visbiome)
amlodipine 10 mg tablet 10 mg PO DAILY Blood pressure 01/01/23
metoprolol succinate 25 mg 25 mg PO BID Blood Pressure 06/16/23
tablet,extended release 24 hr
polyethylene glycol 3350 17 gram 17 g PO DAILYPRN PRN constipation 07/02/23
oral powder packet (Miralax)
apixaban 2.5 mg tablet (Eliquis) 2.5 mg PO BID #60 tabs 07/04/23
levothyroxine 75 mcg tablet 75 mcg PO DAILY AT 0700 30 days 07/04/23
#30 tabs
metformin 500 mg tablet 500 mg PO BID Diabetes #0 tabs 07/04/23
Allergies
-
Allergies
Allergy/AdvReac Type Severity Reaction Status Date / Time
alendronate sodium Allergy stomach Verified 11/10/24 09:01
[From Fosamax] pain
codeine Allergy CHEST Verified 11/10/24 09:01
PAIN, GI
UPSET
cortisone Allergy Chest Pain Verified 11/10/24 09:01
hydrocortisone Allergy PAIN AT Verified 11/10/24 09:01
[Hydrocortisone] INJECTION
SITE/chest
pain
lisinopril Allergy Hives Verified 11/10/24 09:01
oxycodone Allergy Hallucinati Verified 11/10/24 09:01
ons
oxycodone HCl [From Percocet] Allergy hallucinati Verified 11/10/24 09:01
on
prednisone [Prednisone] Allergy Swelling Verified 11/10/24 09:01
in some
areas/chest
pain
Epxkrhl-EBU-TmF Reductase Allergy STRONG Verified 11/10/24 09:01
Inhibitor MUSCLE
[Jduftrk-Lbg-Snm Reductase PAIN,
Inhibitor] Myalgias
sulfamethoxazole Allergy Hives Verified 11/10/24 09:01
[From Bactrim]
trimethoprim [From Bactrim] Allergy Hives Verified 11/10/24 09:01
NIH Stroke Score
Subsequent NIH Scale
Date of Subsequent NIH Scale: 11/10/24
Time of Subsequent NIH Scale: 11:00
NIH Stroke Score
Level of Consciousness: 0 - Alert
LOC Questions: 0-Answers both correctly
LOC Commands: 0-Performs both correctly
Best Horizontal Gaze: 0-Normal
Visual Ashton: 0=Normal, no visual loss
Facial Palsy: 0=Normal, symmetrical
Motor - Right Arm: 0=No drift 10 seconds
Motor - Left Arm: 0=No drift 10 seconds
Motor - Right Le-No drift 5 seconds
Motor - Left Le-No drift 5 seconds
Limb Ataxia: 0-Absent
Sensation: 0-Normal
Best Language: 0-No aphasia
Dysarthria: 0-Normal
Extinction and Inattention: 0-No abnormality
Total Score:: 0

Documented by User: Crow Sanford MD 11/10/24 15:58
NIH Stroke Score
NIH Stroke Score
Total Score:: 0
--- NOTE | 2024-11-10 12:03 | EDRN ---
Patient walked to the bathroom and back in bed, reports slight dizziness, patient was able to walk with steady gait and minimal assistance
== END 2024-11-10 13:41 | disposition home or self-care (01) ==
LOC: EMR 08:53
PROVIDERS: Emergency Medicine; CONSULT PHYSICIAN Psychiatry & Neurology Neurology; EMERGENCY PHYSICIAN Emergency Medicine; FAMILY PHYSICIAN Family Medicine
DX: R42 Dizziness and giddiness (principal); I25.10 Atherosclerotic heart disease of native coronary artery without angina pectoris; E03.9 Hypothyroidism, unspecified; E78.00 Pure hypercholesterolemia, unspecified; I12.9 Hypertensive chronic kidney disease with stage 1 through stage 4 chronic kidney disease, or unspecified chronic kidney disease; E11.22 Type 2 diabetes mellitus with diabetic chronic kidney disease; I48.91 Unspecified atrial fibrillation; Z87.19 Personal history of other diseases of the digestive system; Z88.5 Allergy status to narcotic agent; Z88.2 Allergy status to sulfonamides; Z95.0 Presence of cardiac pacemaker; Z95.5 Presence of coronary angioplasty implant and graft; Z90.710 Acquired absence of both cervix and uterus; Z90.721 Acquired absence of ovaries, unilateral; Z79.01 Long term (current) use of anticoagulants; Z79.84 Long term (current) use of oral hypoglycemic drugs
CPT/HCPCS: 99285; 70450; 71046; 80053; 84484; 85025; 93005

== ENCOUNTER 2025-08-01 06:59 | Emergency (ER) | payer OTHER, SELFPAY ==
[2025-08-01] VITALS (17 sets, daily range): BP systolic 112–153; BP diastolic 61–119
--- NOTE | 2025-08-01 07:22 | ED.GENMED ---
History of Present Illness
<Evans Collins MD, Resident - Last Filed: 08/01/25 11:35>
General
Chief Complaint: Chest Pain
Source: patient
Time Seen by Provider: 08/01/25 07:05
History of Present Illness
History of Present Illness:
Patient is an 84-year-old female with past medical history significant for coronary artery disease s/p 2 stents, atrial fibrillation (on Xarelto and metoprolol), restless leg syndrome, diabetes mellitus, hypothyroidism, hypertension, hyperlipidemia
who is here for evaluation of chest pressure.
She woke up this morning with this chest pressure, which she described as someone was sitting on her chest. She also felt a little bit short of breath but denies any other associated symptoms. She called the EMS services and was given
nitroglycerin and full dose aspirin on her way here. She said she felt significant relief in her chest pressure after taking the medications and currently is comfortable. She was supposed to follow-up with cardiology today for some procedure which
she does not know for atrial fibrillation.
Denies any nausea, vomiting, lightheadedness, fatigue, neck, arm or jaw pain, near-syncope or syncopal episodes.
She recently finished her course of antibiotics for UTI yesterday and has a history of frequent UTIs.
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
If applicable-neuro sx onset
Date of onset of symptoms: 08/01/25
Time of onset of symptoms: 06:00
Past History
<Evans Collins MD, Resident - Last Filed: 08/01/25 11:35>
Past History
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
hypertensive retinopathy of both eyes, vitreous detachmen)
ED Past Surgical History: Cardiac (PTCA with stent to the right coronary artery February 2016), Cholecystectomy, Gynecological (hysterectomy salpingooophorectomy 11/2019), Orthopedic (Bilateral knee replacements) and Urological (abdominal culposuspension
)
Social History
Tobacco: Non-smoker
Alcohol: None
Drug: None
Personal:
Living: alone
Employment: Not employed
Family History
Family History: Other (Noncontributory)
Review of Systems
<Evans Collins MD, Resident - Last Filed: 08/01/25 11:35>
Review of Systems
All Other Systems: ROS reviewed and negative except as documented in HPI and ROS
Phy Exam
<Evans Collins MD, Resident - Last Filed: 08/01/25 11:35>
General Physical Exam
General Presentation: well appearing and no apparent distress
General age: appears stated age
General Skin: warm and dry
General Mental: alert
Cardiovascular Exam
Cardiovascular Exam: regular rate/rhythm, no edema, no JVD, no murmur, normal peripheral pulses, irregularly irregular and tachycardia
Pulmonary Exam
Pulmonary Exam: lungs clear and no respiratory distress
Gastrointestinal Exam
Gastrointestinal Exam: normal bowel sounds, non tender and soft
Neurological Exam
Neurological Exam: alert, oriented x3 and speech normal
Musculoskeletal Exam
Musculoskeletal Exam: full ROM
Skin Exam
Skin Exam: normal color and warm/dry
Psychiatric Exam
Psychiatric Exam: normal mood/affect
Scores
<Evans Collins MD, Resident - Last Filed: 08/01/25 11:35>
Heart Score for Chest Pain Patients
STEMI patient?: No
History: Moderately Suspicious
ECG: Normal
Age: >/= 65 years
Risk Factors: >/= 3 Risk Factors or History of CAD
Troponin: </= Normal Limit
Heart Score for Chest Pain Patients: 5
Heart Score Risk: 20.3% MACE over next 6 weeks
<Coretta Villalpando MD - Last Filed: 08/01/25 13:10>
Heart Score for Chest Pain Patients
Heart Score for Chest Pain Patients: 5
Heart Score Risk: 20.3% MACE over next 6 weeks
Course
<Evans Collins MD, Resident - Last Filed: 08/01/25 11:35>
Orders/Labs/Results
Orders:
Orders
08/01/25 07:03
Electrocardiogram (*1) Urgent
Reason for Study: Chest Pain
Cardiac Monitoring- Treatment ONCE
EKG- Treatment ONCE
Pulse Ox/spot Check [RESP] Urgent
Quantity: 1
Special Instructions: ON ROOM AIR
08/01/25 07:11
Complete Blood Count/With Diff Urgent
Comprehensive Metabolic Panel Urgent
Prothrombin Time Urgent
TSH Urgent
Comment: ADD ON
Troponin I Urgent
08/01/25 07:21
CR Chest - 2 Views Urgent
Comment:
Reason For Exam: chest pain
08/01/25 07:54
EKG- Treatment ONCE
08/01/25 08:48
Metoprolol [Lopressor] 5 mg IV NOW STA
08/01/25 10:00
Electrocardiogram (*1) Urgent
Reason for Study: Chest Pain
08/01/25 10:09
Troponin I Urgent
08/01/25 10:26
Propofol [Diprivan] 20 ml .ROUTE .STK-MED
08/01/25 11:46
Add On- LAB Urgent
Tests Added?: TSH
Abnormal Lab Results
08/01/25
07:11
RBC 4.00 L 10^6/uL
(4.20-5.40)
Hgb 11.6 L g/dL
(12.0-16.0)
Hct 34.7 L %
(37.0-47.0)
Abs Immat Gran (auto) 0.1 H 10^3/uL
(0-0.05)
Absolute Monos (auto) 0.9 H 10^3/uL
(0.1-0.6)
Immature Gran % 0.8 H %
(0-0.5)
Lymphocytes % 20.3 L %
(20.5-51.1)
Monocytes % 13.3 H %
(1.7-9.3)
Creatinine 1.1 H mg/dL
(0.6-1.0)
Glucose 137 H mg/dl
(70-99)
08/01/25 07:11
08/01/25 07:11
Vital Signs
Initial and Last Documented VS:
Initial Vital Signs
BP
140/92
08/01/25 07:02
Last Documented Vital Signs
Temp Pulse Resp BP Pulse Ox
98.2 F 67 14 112/97 99
08/01/25 10:53 08/01/25 12:46 08/01/25 12:00 08/01/25 12:45 08/01/25 12:37
<Coretta Villalpando MD - Last Filed: 08/01/25 13:10>
Orders/Labs/Results
Orders:
Orders
08/01/25 07:03
Electrocardiogram (*1) Urgent
Reason for Study: Chest Pain
Cardiac Monitoring- Treatment ONCE
EKG- Treatment ONCE
Pulse Ox/spot Check [RESP] Urgent
Quantity: 1
Special Instructions: ON ROOM AIR
08/01/25 07:11
Complete Blood Count/With Diff Urgent
Comprehensive Metabolic Panel Urgent
Prothrombin Time Urgent
TSH Urgent
Comment: ADD ON
Troponin I Urgent
08/01/25 07:21
CR Chest - 2 Views Urgent
Comment:
Reason For Exam: chest pain
08/01/25 07:54
EKG- Treatment ONCE
08/01/25 08:48
Metoprolol [Lopressor] 5 mg IV NOW STA
08/01/25 10:00
Electrocardiogram (*1) Urgent
Reason for Study: Chest Pain
08/01/25 10:09
Troponin I Urgent
08/01/25 10:26
Propofol [Diprivan] 20 ml .ROUTE .STK-MED
08/01/25 11:46
Add On- LAB Urgent
Tests Added?: TSH
Abnormal Lab Results
08/01/25
07:11
RBC 4.00 L 10^6/uL
(4.20-5.40)
Hgb 11.6 L g/dL
(12.0-16.0)
Hct 34.7 L %
(37.0-47.0)
Abs Immat Gran (auto) 0.1 H 10^3/uL
(0-0.05)
Absolute Monos (auto) 0.9 H 10^3/uL
(0.1-0.6)
Immature Gran % 0.8 H %
(0-0.5)
Lymphocytes % 20.3 L %
(20.5-51.1)
Monocytes % 13.3 H %
(1.7-9.3)
Creatinine 1.1 H mg/dL
(0.6-1.0)
Glucose 137 H mg/dl
(70-99)
08/01/25 07:11
08/01/25 07:11
Vital Signs
Initial and Last Documented VS:
Initial Vital Signs
BP
140/92
08/01/25 07:02
Last Documented Vital Signs
Temp Pulse Resp BP Pulse Ox
98.2 F 67 14 112/97 99
08/01/25 10:53 08/01/25 12:46 08/01/25 12:00 08/01/25 12:45 08/01/25 12:37
Procedures
<Evans Collins MD, Resident - Last Filed: 08/01/25 11:35>
Cardioversion
Indication:: Afib
Performed by:: Dr.Hamna Villalpando, Dr.Sandal Shelley
Synchronized?: Yes
Energy Used: 200 joules
Successful?: Yes
ASA Risk Score: Class II
Any reaction or bad outcome to prior sedation/anesthesia?: No history of a reaction
Sedation level to be attained: minimal
Chart and allergies reviewed: Yes
Patient reassessed prior to sedation: Yes
Time out completed at (validating right patient & procedure): 10:24
History of difficult intubation: Not applicable
Airway free of obstruction: Not applicable
Patient has a gag reflex: Not applicable
Patient is able to open mouth: Not applicable
Patient has no dentures: Not applicable
Patient has no loose teeth: Not applicable
Medication administered by Provider during Moderate Sedation: IV Propofol (mg)
Total dose administered: 30
Time drug administered: 10:26
Start Time: 10:26
Stop Time: 10:27
<Coretta Villalpando MD - Last Filed: 08/01/25 13:10>
Cardioversion
Sedation level to be attained: moderate
Time out completed at (validating right patient & procedure): 10:42
History of difficult intubation: No
Airway free of obstruction: Yes
Patient has a gag reflex: Yes
Patient is able to open mouth: Yes
Patient has no dentures: Yes
Patient has no loose teeth: Yes
Time drug administered: 10:42
Start Time: 10:42
Stop Time: 10:52
<Evans Collins MD, Resident - Last Filed: 08/01/25 11:35>
MDM/Problems Addressed
Differential Diagnosis Includes:
Atrial fibrillation with rapid ventricular response
ACS
Pulmonary embolism
COVID/influenza
Dehydration
MDM/Problems Addressed:
EKG consistent with atrial fibrillation with rapid ventricular response
Troponin levels normal
COVID and flu swab- Negative
CBC and CMP
Less likely pulmonary embolism given the patient is already on blood thinners, low yield of CT PE
Cardiology consulted-on direction, synchronized cardioversion done which the patient tolerated successfully
Patient to follow-up on her regular cardiology appointment as scheduled tomorrow at 10:40 AM
<Evans Collins MD, Resident - Last Filed: 08/01/25 11:35>
*Pulse Oximetry
SaO2: 99
Oxygen Mode of Delivery: Room air
Patient hypoxic: no
*Critical Care Note
Total Time (30-74mins, 75-104mins- exclusive of procedures): Not Applicable
ED Attending Note
<Evans Collins MD, Resident - Last Filed: 08/01/25 11:35>
-
Portions of this chart may have been created with voice recognition software.� Occasional wrong word or��sound alike� substitutions may have occurred due to the inherent limitations of voice recognition software.
<Coretta Villalpando MD - Last Filed: 08/01/25 13:10>
ED Attending Note
Patient seen and examined by attending physician: Yes
I performed a history and physical exam of patient and discussed management with resident, I reviewed resident's note and agree with documented findings and plan of care.: Yes
ED Attending Note:
I have seen and evaluated the patient with a [id number] encounter. I have spoken to the [resident] and involved in the medical history, the physical exam, medical decision making.
Evaluation and management service: agree unless noted differently below.
Results interpretation: agree unless noted differently below.
Patient is a 84-year-old woman with history of CAD with stents, atrial fibrillation on Eliquis presented to the emergency department chest pressure. Patient said that she woke up at 6 AM with midsternal chest pressure. It did not radiate.
Associated shortness of breath. She has had chest pain similar to this before. Called 911. On their arrival to ER for nitro and aspirin. Pain resolved. She does state that she has had 2 stents. Follows with cardiology. She does note that she
has a pacemaker and received a call today that she is in atrial fibrillation. She does follow-up with cardiology today. Patient this time has no medical. During my evaluation patient is resting comfortably. Her heart is tachycardic and irregular
in the 120s though she is asymptomatic. 2+ radial pulses bilaterally abdomen soft nontender nontender. She has a moist oral mucosa.
Differential consists of ACS versus atrial fibrillation. Considered PE though less likely as patient is anticoagulated. Will check blood work troponin chest x-ray
Troponin negative. Did discuss with cardiology given that patient had a scheduled appointment today. They evaluated patient at bedside. Patient reportedly has actually been in atrial fibrillation for many months now and they have been uptitrating
her metoprolol. Recommend synchronized cardioversion which was completed successfully. Patient is now back in a paced rhythm. Delta troponin negative. Patient able to tolerate p.o. and ambulate. Symptoms have resolved. Will discharge at this
time with cardiology follow-up tomorrow
Discharge Plan
Departure
Patient Disposition: Home (Routine Discharge)
Date of Disposition: 08/01/25
Time of Disposition: 12:37
Patient with high blood pressure during this ER visit?: No
Discharge Problem:
Atrial fibrillation with rapid ventricular response
Instructions: Atrial fibrillation (DC), Cardioversion (DC)
Prescriptions:
No Action
acetaminophen [Tylenol Extra Strength] 500 MG tablet
500 mg PO Q6HPRN PRN (Reason: mild pain)
calcium carbonate [Antacid (calcium carbonate)] 1 TABLET tablet,chewable
1 tab PO Q6HPRN PRN (Reason: gi upset)
pravastatin 10 mg Tablet
10 mg PO MOWEFR
amlodipine 10 mg tablet
10 mg PO DAILY
Visbiome 112.5 billion cell Capsule
1 cap PO DAILY
metoprolol succinate 25 mg tablet extended release 24 hr
25 mg PO BID
polyethylene glycol 3350 [Miralax] 17 gram Powder In Packet
17 g PO DAILYPRN PRN (Reason: constipation)
levothyroxine 75 mcg Tablet
75 mcg PO DAILY AT 0700 30 Days Qty: 30 0RF
metformin 500 MG tablet
500 mg PO BID Qty: 0 0RF
Rx Instructions:
resume friday
Eliquis 2.5 mg Tablet
2.5 mg PO BID Qty: 60 0RF
Rx Instructions:
resume eliquis today evening
Referrals:
Stephanie Conte MD [Family Provider, Family Practice]
Jennifer Mosley CRNP [Specified Professional Personl, Cardiology] - 08/02/25 10:40 am
Referral Note: You have a follow up visit with Dr. Jones's REFINERY OPERATOR, Jennifer, at the [place] office. Please call with questions.
Activity Restrictions/Additional Instructions:
Your blood work looks fine
Cardioversion done without any complications
Recommend rest and hydration
Keep your follow-up appointment with cardiology tomorrow
Please return to ER in case of severe chest pain, shortness of breath, syncopal episode or any other worrisome signs
Interventions
Interventions:
*Risk Screen - Suicide Last Done: 08/01/25 07:04
*General Assessment Last Done: 08/01/25 07:07
*Neglect/Abuse Screening Last Done: 08/01/25 07:04
*ED COVID-19 Vaccine History Last Done: 08/01/25 07:09
*ED Influenza Vaccine History Last Done: 08/01/25 07:09
[facility] Fall Risk Assessment Tool Last Done: 08/01/25 10:58
ED- Cardiac Assessment Last Done: 08/01/25 07:10
Discharge Date and Time
Print Language: DOMINICAN
[2025-08-01 07:23] LABS: Hematocrit 34.7 % (37.0-47.0); Hemoglobin 11.6 g/dL (12.0-16.0); Mean Corp Hgb Conc. 33.4 g/dL (33.0-37.0); Mean Corpuscular Volume 86.8 fL (81.0-99.0); Nucleated Red Blood Cells % 0 %; Platelet Count 338 10^3/uL (130-400); Red Cell Dist. Width 14.2 % (11.5-14.5)
[2025-08-01 07:33] LABS: INR 1.05; PT 13.8 Sec (11.4-14.6)
[2025-08-01 07:39] LABS: ALT (SGPT) 15 U/L (0-35); AST (SGOT) 20 U/L (14-36); Albumin 3.8 g/dl (3.5-5.0); Alkaline Phosphatase 56 U/L (38-126); Blood Urea Nitrogen 15 mg/dl (7-17); Calcium 9.4 mg/dl (8.4-10.2); Carbon Dioxide 26 mmol/L (22-30); Chloride 101 mmol/L (98-107); Glucose 137 mg/dl (70-99); Potassium 4.2 mmol/L (3.5-5.1); Sodium 135 mmol/L (135-145); Total Protein 7.2 g/dl (6.3-8.2); eGFR 49.24
[2025-08-01 07:50] LABS: Troponin I < 0.012 ng/ml
[2025-08-01] MEDS: LOPRESSOR 5 MG IV (08:59)
--- NOTE | 2025-08-01 09:51 | CON.CAR ---
Addendum entered and electronically signed by Cortez Ponce MD 08/01/25 11:40:
84-year-old woman with PAF and recent recurrence of atrial flutter documented by pacer histograms. Was scheduled for outpatient follow-up, but this morning awoke with chest discomfort and presented to the emergency department.
PMH/PSH: Paroxysmal atypical atrial flutter/PAF, Medtronic dual-chamber pacer 2022, syncope, CAD with PDA PCI 2015, central retinal vein occlusion, hypertension, hyperlipidemia, diabetes, hypothyroidism
Medications: Reviewed, allergies: Reviewed
121/87, pulse 86, respiratory rate 32, afebrile, head neck exam unremarkable, lungs are clear, tachycardic, regular, no murmurs, JVD okay no edema, neuro nonfocal
Chest x-ray: NAD with pacemaker
BUN and creatinine are 15 and 1.1, troponin is undetectable
ECG: Atypical atrial flutter with 2-1 conduction
Impression:
Chest pain with undetectable troponin, discomfort likely related to tachycardia
Atypical atrial flutter with 2-1 conduction
Permanent pacemaker
History of PAF/atrial flutter
CAD, PDA PCI 2015
Central retinal vein occlusion
Hypertension
Hyperlipidemia
Diabetes
Hypothyroidism
Plan:
Although she has chest pain, she does not have acute ECG changes and her troponin is undetectable. Chest pain is likely related to rapid ventricular response to atypical atrial flutter rather than a true ACS.
Best option is to proceed with cardioversion. If this goes smoothly, she can be released from the emergency department and we will follow-up as outpatient. This is her first recent recurrence, at present will not add antiarrhythmic agents.
Original Note:
Consultation
Consultation Request
Date/Time Consultation Requested: 08/01/2025
Date/Time Consultation Performed: 08/01/2025
Requesting Provider: Dr. Villalpando
Performing Provider: Allie Zhong PA-C for Dr. Ponce
Reason for Consultation: Rapid Afib
Medical History
-
History of Present Illness:
HPI: Juana is an 84 Female with past medical history of paroxysmal atrial fibrillation and flutter on chronic Xarelto, PPM, CAD status post PDA PCI 2016, central retinal vein occlusion, hypertension, hyperlipidemia, carotid artery disease, type II
DM, and hypothyroidism. Cardiology office received device transmission on 07/22/2025 which showed patient had been in rapid atrial fibrillation with heart rates in the 120s. Patient admitted to feeling more tired, so she was placed on higher dose
metoprolol 75 mg twice daily. Despite this, heart rates remained rapid. In AM 08/01/2025, she felt chest pressure/pain. Described it as feeling as though someone was sitting on her chest. She called EMS and was given nitro and aspirin en route to
ER. Given a dose of IV Lopressor on arrival to the ER given rapid atrial fibrillation. She has been compliant with her Xarelto and denies any missed doses. Initial troponin negative. K stable at 4.2. Chest x-ray clear. Feeling better
currently, but remains in rapid A-fib.
PMH:
Paroxysmal atypical atrial flutter and atrial fibrillation
Chronic Xarelto anticoagulation
s/p Medtronic DC PPM implant and Linq removal 07/03/2023
h/o recurrent syncope
CAD
s/p PDA PCI 2015
h/o central retinal vein occlusion
HTN
HLD
B/L carotid artery disease
Type 2 diabetes
Hypothyroidism
Past Medical History
Past Medical History: Other (in HPI)
Past Surgical History: Cholecystectomy, Gynecological (hysterectomy) and Orthopedic
Social History
Tobacco: Non-Smoker
Alcohol: None
Living: Alone
Family History
Family History: Hypertension and Other (mother with PPM)
Allergies / Home Medications
Allergy/AdvReac Type Severity Reaction Status Date / Time
alendronate sodium (From Allergy stomach Verified 08/01/25 07:03
Fosamax) pain
codeine Allergy CHEST Verified 08/01/25 07:03
PAIN, GI
UPSET
cortisone Allergy Chest Pain Verified 08/01/25 07:03
hydrocortisone Allergy PAIN AT Verified 08/01/25 07:03
(Hydrocortisone) INJECTION
SITE/chest
pain
lisinopril Allergy Hives Verified 08/01/25 07:03
oxycodone Allergy Hallucinati Verified 08/01/25 07:03
ons
oxycodone HCl (From Percocet) Allergy hallucinati Verified 08/01/25 07:03
on
prednisone (Prednisone) Allergy Swelling Verified 08/01/25 07:03
in some
areas/chest
pain
Vxrodth-[id number] Reductase Allergy STRONG Verified 08/01/25 07:03
Inhibitor (Eienlkb-Ntu-Bzq MUSCLE
Reductase Inhibitor) PAIN,
Myalgias
sulfamethoxazole (From Allergy Hives Verified 08/01/25 07:03
Bactrim)
trimethoprim (From Bactrim) Allergy Hives Verified 08/01/25 07:03
�Medication �Instructions �Recorded �Confirmed �Type
acetaminophen 500 mg tablet 500 mg PO Q6HPRN PRN mild pain 10/28/19 07/02/23 History
(Tylenol Extra Strength)
calcium carbonate (Antacid 1 tab PO Q6HPRN PRN gi upset 10/28/19 07/02/23 History
(calcium carbonate))
pravastatin 10 mg tablet 10 mg PO MOWEFR High cholesterol 09/13/22 07/02/23 History
Lactobac no.2-Bifidobac no.1-S. 1 cap PO DAILY Supplement 01/01/23 07/02/23 History
thermo 112.5 billion cell capsule
(Visbiome)
amlodipine 10 mg tablet 10 mg PO DAILY Blood pressure 01/01/23 07/02/23 History
metoprolol succinate 25 mg 25 mg PO BID Blood Pressure 06/16/23 07/02/23 History
tablet,extended release 24 hr
polyethylene glycol 3350 17 gram 17 g PO DAILYPRN PRN constipation 07/02/23 07/02/23 History
oral powder packet (Miralax)
apixaban 2.5 mg tablet (Eliquis) 2.5 mg PO BID #60 tabs 07/04/23 07/02/23 Rx
levothyroxine 75 mcg tablet 75 mcg PO DAILY AT 0700 30 days 07/04/23 Rx
#30 tabs
metformin 500 mg tablet 500 mg PO BID Diabetes #0 tabs 07/04/23 07/02/23 Rx
Review of Systems
-
History Source: Patient
All other systems: Negative unless noted
Physical Exam
Vital Signs
Temp Pulse Resp BP Pulse Ox
98.1 F 128 18 128/84 99
08/01/25 07:04 08/01/25 08:59 08/01/25 07:04 08/01/25 08:59 08/01/25 07:32
Lab Results
08/01/25 07:11
08/01/25 07:11
Troponin I < 0.012 ng/ml 08/01/25 07:11
Physical Exam
General: Well Developed, Well Nourished and No Apparent Distress
HEENT: Normocephalic, Anicteric and Moist Mucous Membranes
Respiratory: Clear and Non Labored Respirations
Cardiac: S1/S2 and Irregular Rhythm
Musculoskeletal: No Clubbing, No Cyanosis and No Edema
Skin: Warm and Dry
Neuro: Nonfocal/Grossly Intact
Psych: Calm
Impression / Plan
-
PCP: Dr. Conte
Assistant Production Editor: Dr. Karen Thibodeaux
Impression:
Presented with chest pressure
Paroxysmal atrial fibrillation w/ RVR
Paroxysmal atypical atrial flutter
Chronic Xarelto anticoagulation
s/p Medtronic DC PPM implant and Linq removal 07/03/2023
h/o recurrent syncope
CAD
s/p PDA PCI 2015
h/o central retinal vein occlusion
HTN
HLD
B/L carotid artery disease
Type 2 diabetes
Hypothyroidism
Echo 08/2022: EF 55 to 60%, no regional wall motion abnormalities noted, global longitudinal strain -16%, mild AR, aortic sclerosis, mild TR, PAP 30 mmHg
Echo 05/14/23: EF 60-65%, mild basal septal LVH without LVOT gradient, mild AR, mild MAC
Echo 09/02/2024: EF 66%, mild concentric LVH, mild AR, mild TR
Plan:
-Presented with chest pressure. In rapid atrial fibrillation.
-Given 325 mg of aspirin and SL nitro by EMS en route to ER. No chest pain currently.
-Initial troponin negative. Await repeat at 10:00.
-She has been in rapid atrial fibrillation for the past 10 days and HRs remain elevated despite uptitration of OP metoprolol to 75mg in AM, 100mg in PM.
-Given a dose of IV lopressor in ER and rates remain elevated.
-Complaint with Xarelto, denies any missed doses.
-Would plan on cardioversion while in ER in an attempt to restore SR.
-Previously did not tolerate amiodarone as it caused nausea.
-Echo 08/2024 with preserved EF as noted above.
-K stable at 4.2.
-She has a follow up visit with cardiology tomorrow that will be kept.
-Called and updated patient's sister, Tammy, per patient request.
HPI: Juana is an 84 Female with past medical history of paroxysmal atrial fibrillation and flutter on chronic Xarelto, PPM, CAD status post PDA PCI 2016, central retinal vein occlusion, hypertension, hyperlipidemia, carotid artery disease, type II
DM, and hypothyroidism. Cardiology office received device transmission on 07/22/2025 which showed patient had been in rapid atrial fibrillation with heart rates in the 120s. Patient admitted to feeling more tired, so she was placed on higher dose
metoprolol 75 mg twice daily. Despite this, heart rates remained rapid. In AM 08/01/2025, she felt chest pressure/pain. Described it as feeling as though someone was sitting on her chest. She called EMS and was given nitro and aspirin en route to
ER. Given a dose of IV Lopressor on arrival to the ER given rapid atrial fibrillation. She has been compliant with her Xarelto and denies any missed doses. Initial troponin negative. K stable at 4.2. Chest x-ray clear. Feeling better
currently, but remains in rapid A-fib.
Data Reviewed
-
EKG: Tracing Personally Visualized and interpreted
Radiology: Report Reviewed by me
Labs: Labs Reviewed by me
Old Records: Reviewed
[2025-08-01 10:52] LABS: Troponin I < 0.012 ng/ml
[2025-08-01 13:21] LABS: TSH 2.61 uIU/ml (0.47-4.68)
== END 2025-08-01 13:11 | disposition home or self-care (01) ==
LOC: EMR 06:59
PROVIDERS: EMERGENCY PHYSICIAN Student in an Organized Health Care Education/Training Program; FAMILY PHYSICIAN Family Medicine
DX: I48.91 Unspecified atrial fibrillation (principal); I25.10 Atherosclerotic heart disease of native coronary artery without angina pectoris; H34.8132 Central retinal vein occlusion, bilateral, stable; G25.81 Restless legs syndrome; E78.00 Pure hypercholesterolemia, unspecified; E11.9 Type 2 diabetes mellitus without complications; E03.9 Hypothyroidism, unspecified; I10 Essential (primary) hypertension; I47.10 Supraventricular tachycardia, unspecified; I77.9 Disorder of arteries and arterioles, unspecified; Z79.01 Long term (current) use of anticoagulants; Z79.899 Other long term (current) drug therapy; Z82.49 Family history of ischemic heart disease and other diseases of the circulatory system; Z83.3 Family history of diabetes mellitus; Z83.49 Family history of other endocrine, nutritional and metabolic diseases; Z87.19 Personal history of other diseases of the digestive system; Z87.440 Personal history of urinary (tract) infections; Z87.74 Personal history of (corrected) congenital malformations of heart and circulatory system; Z90.49 Acquired absence of other specified parts of digestive tract; Z90.710 Acquired absence of both cervix and uterus; Z90.721 Acquired absence of ovaries, unilateral; Z95.5 Presence of coronary angioplasty implant and graft; Z96.653 Presence of artificial knee joint, bilateral
CPT/HCPCS: 99284; 92960; 96374; 71046; 80053; 84443; 84484; 85025; 85610; 93005